=== PATIENT | female | born 1950 | race Caucasian/White ===

== ENCOUNTER → 2018-07-14 | Outpatient (CLI) | payer OTHER ==
[~2018-07-14] MED LIST: AMBIEN 5 MG TABL5 M1 PO; ATORVASTATIN CA40 MG PO; CYMBALTA20 MG PO; FOLIC ACID1 MG PO; METHOTREXATE 22.5 MG PO; PERCOCET 7.5-31 EACH PO; PRILOSEC 10MG C10 MG PO; PROLOPRIM100 MG PO; XELJANZ5 MG PO
--- NOTE | 2018-07-15 08:21 | EKG ---
[place] [address] [facility] [place] [address] ELECTROCARDIOGRAM REPORT Name: JUAN M JANG Room #: [facility]#: [id number] ������������������ Admission: 07/14/18 ������������������ Attend Phys: Marcie Duran MD Discharge: ������������������ Date of : 52 Report #: [id number] ����������������������������������������������������������������� [id number] THIS REPORT FOR: //name// [facility] Test Date: 2018-07-14 Test Time: 11:49:38 Pat Name: JUAN M JANG Department: Room: Gender: F [employer]: SHANON : 1950 Requested By: Marcie Duran Order Number: [id number] MD: Steve Lancaster Measurements Intervals [place] Rate: 67 P: 8 OK: 197 QRS: -13 QRSD: 86 T: 11 QT: 410 QTc: 433 Interpretive Statements Sinus rhythm Possible inferior infarct, age indeterminate No previous ECG available for comparison Electronically Signed On 07-15-2018 8:20:53 ADMIN DIR by Steve Lancaster [email or web address] ��������������������������������������������� <ELECTRONICALLY SIGNED> ���������������������������������������� By: Steve Lancaster MD, [facility] ��������������������������������������������� 07/15/18 0820 [id number] [id number] Steve Lancaster MD, FACC /EPI
== END | disposition home or self-care (01) ==
LOC: LITH 11:21
DX: N20.0 Calculus of kidney (principal); F41.9 Anxiety disorder, unspecified; F32.9 Major depressive disorder, single episode, unspecified; Z79.899 Other long term (current) drug therapy; Z98.890 Other specified postprocedural states; Z96.652 Presence of left artificial knee joint; Z88.0 Allergy status to penicillin